=== PATIENT | female | born 1980 | race Caucasian/White ===

== ENCOUNTER 2019-07-11 17:46 | Emergency (ER) | payer BC, SELFPAY ==
--- NOTE | ~2019-07-11 | XR_ITS ---
EXAMINATION: XR shoulder LT min 2V INDICATION: Left shoulder dislocation post reduction TECHNIQUE: Two views of the left shoulder are obtained. COMPARISON: 1804 hours FINDINGS: The previously described left humeral head dislocation has been reduced. Alignment is anato shima. No fracture is identified. IMPRESSION: 1. Reduced shoulder dislocation. Reviewed, dictated and finalized at location A.
--- NOTE | ~2019-07-11 | XR_ITS ---
EXAMINATION: XR shoulder LT min 2V INDICATION: Left shoulder pain and dislocation after fall TECHNIQUE: Two views of the left shoulder are obtained. COMPARISON: None available FINDINGS: There is anterior and inferior dislocation of the left humeral head with respect to the gle noid. No fracture is identified. The visualized osseous structures are otherwise unremarkable. IMPRESSION: 1. Anterior/inferior dislocation of the humeral head with respect to the glenoid. Reviewed, dictated and finalized at location A. IMPRESSION: 1. Anterior/inferior dislocation of the humeral head with respect to the glenoi d.
[2019-07-11 17:48] VITALS: BP 105/50; PULSE 89; RESP 20; TEMP 36.2; O2SAT 98
--- NOTE | 2019-07-11 17:52 | ED.GENADULT ---
HPI - General Adult General Chief complaint: Extremity Injury, Upper <Sepideh Manzo MD - Last Filed: 07/11/19 18:55> Stated complaint: left shoulder dislocation <Sepideh Manzo MD - Last Filed: 07/11/19 18:55> Time Seen by Provider: 07/11/19 17:51 <Sepideh Manzo MD - Last Filed: 07/11/19 18:55> History of Present Illness HPI narrative: Patient is a 38 y/o female complaining of left shoulder pain. She states that she was running and fell. She landed on left palm and she believed she popped her shoulder out. She was also has some mild left knee pain, but she is able to ambulate. She denies hitting her head or having any LOC. She rates her pain as 8/10 and it's worse with movement. She has some scratches on left knee and both hands. She is not sure when her last tetanus shot was. <Sepideh Manzo MD - Last Filed: 07/11/19 18:55> Related Data Home medications: Home Medications Medication Instructions Recorded Confirmed No Home Medications 07/11/19 07/11/19 <Sepideh Manzo MD - Last Filed: 07/11/19 18:55> Allergies/adverse reactions: Allergies Allergy/AdvReac Type Severity Reaction Status Date / Time No Known Allergies Allergy Mild Verified 07/11/19 17:55 <Sepideh Manzo MD - Last Filed: 07/11/19 18:55> Review of Systems Constitutional: Constitutional: Denies chills, Denies fever(s), Denies headache(s) and Denies weakness <Sepideh Manzo MD - Last Filed: 07/11/19 18:55> Eyes: Eyes: Denies blurry vision <Sepideh Manzo MD - Last Filed: 07/11/19 18:55> ENT: Denies headache(s) and Denies neck pain <Sepideh Manzo MD - Last Filed: 07/11/19 18:55> Cardiovascular: Cardiovascular: Denies chest pain and Denies dyspnea <Sepideh Manzo MD - Last Filed: 07/11/19 18:55> Respiratory: Respiratory: Denies cough and Denies dyspnea <Sepideh Manzo MD - Last Filed: 07/11/19 18:55> Gastrointestinal: Gastrointestinal: Denies abdominal pain, Denies diarrhea, Denies nausea and Denies vomiting <Sepideh Manzo MD - Last Filed: 07/11/19 18:55> Genitourinary: Genitourinary: Denies hematuria and Denies dysuria <Sepideh Manzo MD - Last Filed: 07/11/19 18:55> Musculoskeletal: Musculoskeletal: Denies back pain, Reports arthralgias (left shoulder pain) and Denies neck pain <Sepideh Manzo MD - Last Filed: 07/11/19 18:55> Neurologic: Denies headache(s) and Denies weakness <Sepideh Manzo MD - Last Filed: 07/11/19 18:55> [facility] Social History Social History: Social History Gender identity (if verbalized by the patient): Female <Sepideh Manzo MD - Last Filed: 07/11/19 18:55> Exam Const: General: no acute distress and well developed <Sepideh Manzo MD - Last Filed: 07/11/19 18:55> Orientation/consciousness: oriented to person, oriented to place, oriented to time and patient oriented x3 <Sepideh Manzo MD - Last Filed: 07/11/19 18:55> HENMT: Head: normocephalic <Sepideh Manzo MD - Last Filed: 07/11/19 18:55> Ears: external ears normal <Sepideh Manzo MD - Last Filed: 07/11/19 18:55> General nose exam: Normal external nose present <Sepideh Manzo MD - Last Filed: 07/11/19 18:55> Eyes: General: appearance normal, both eyes and all related structures <Sepideh Manzo MD - Last Filed: 07/11/19 18:55> Conjunctivae: conjunctivae normal <Sepideh Manzo MD - Last Filed: 07/11/19 18:55> Neck: Neck: normal visual inspection and full ROM <Sepideh Manzo MD - Last Filed: 07/11/19 18:55> Chest: Chest palpation & inspection: normal inspection of the chest and no tenderness <Sepideh Manzo MD - Last Filed: 07/11/19 18:55> Resp: Effort & Inspection: normal respiratory effort <Sepideh Manzo MD - Last Filed: 07/11/19 18:55> Auscultation: clear to auscultation bilaterally <Sepideh Manzo MD - Last Filed: 07/11/19 18:55> Cardio: Rate: regular rate <Sepideh Manzo MD - Last Filed: 07/11/19 18:55> Rhythm: regular rhythm <Sepideh Manzo MD - Last Filed: 07/11/19 18:55> GI: GI P
[2019-07-11] MEDS: MORPHINE SULFATE 4 MG/ML INJ (17:56)
[2019-07-11 18:43] VITALS: BP 113/80; PULSE 80; RESP 18; O2SAT 98
[2019-07-11] MEDS: TETANUS,DIPHTHERIA,AC PERTUSSIS ADULT (0.5 ML) BOOSTRIX (18:52)
== END 2019-07-11 19:06 | disposition home or self-care (01) ==
PROVIDERS: Emergency Provider Emergency Medicine; PCP Internal Medicine
DX: S43.015A Anterior dislocation of left humerus, initial encounter (principal); S43.035A Inferior dislocation of left humerus, initial encounter; S80.212A Abrasion, left knee, initial encounter; S60.512A Abrasion of left hand, initial encounter; S60.511A Abrasion of right hand, initial encounter; W01.0XXA Fall on same level from slipping, tripping and stumbling without subsequent striking against object, initial encounter; Y93.02 Activity, running; Z23 Encounter for immunization
CPT/HCPCS: 23650; 73030; 90471; 90715; 96374; 99285; J2270

== ENCOUNTER 2020-04-29 18:41 | Inpatient (IN) | payer BC, SELFPAY ==
[2020-04-29] VITALS (10 sets, daily range): BP systolic 91–116; BP diastolic 39–77; PULSE 62–109; RESP 12–24; TEMP 36.2–38.6; O2SAT 95–100; BMI 25.9
--- NOTE | ~2020-04-29 | CT_ITS ---
EXAMINATION: CT abdomen pelvis wo con DATE: 04/29/2020 19:29 INDICATION: Left flank pain TECHNIQUE: Computed tomography (CT) of the abdomen and pelvis was performed without intravenous contr ast. The dose-length product was 186.14 mGy-cm. Automated exposure control and iterative reconstructi on technique were employed. COMPARISON: CT dated 03/22/2014 FINDINGS: Lung bases are unremarkable. Heart size normal. No significant pleural or pericardial effus ion. There is a 9 mm left UPJ stone with hydronephrosis and perinephric edema. There are multiple non obstructing bilateral renal stones. The liver, spleen, pancreas, adrenal glands are unremarkable. Gallbladder is present. Nonobstructive bowel gas pattern. No significant vascular abnormality. No lymphadenopathy. No acute osseous abnormal ity. No free air or free fluid. No significant soft tissue abnormality. IMPRESSION: 1. Left UPJ stone measuring 9 mm with associated hydronephrosis and perinephric edema. 2: Nonobstructing bilateral nephrolithiasis. Reviewed, dictated and finalized at location A. SUTURE WINDER
--- NOTE | ~2020-04-29 | XR_ITS ---
EXAMINATION: XR retrograde pyelo w/stent LT DATE: 04/29/2020 22:02 INDICATION: Left ureteral stone. TECHNIQUE: 330 intraoperative fluoroscopic views of the abdomen and pelvis were obtained. I was not p resent. Fluoroscopy exposure time was 74 seconds. COMPARISON: CT abdomen and pelvis 04/29/2020 FINDINGS: There is a 9 mm stone in proximal left ureter. Images demonstrate advancement of a guidewir e with migration of the stone into the renal pelvis. The left-sided retrograde pyelogram demonstrates mild left hydronephrosis. The final images demonstrate a left internal ureteral stent in expected po sition. IMPRESSION: 1. 9 mm stone in the left renal pelvis. 2. Left internal ureteral stent in expected position. Reviewed, dictated and finalized at location A. TERPERSON
--- NOTE | ~2020-04-29 | XR_ITS ---
XR abdomen/kub 1V 05/01/2020 09:59 Indication: Surgical planning. Renal stone. Procedure: KUB Comparison: 04/29/2020 Findings: Left internal ureteral stent. There are left renal stones, largest measuring 8 mm. There is an IUD in the pelvis. There are pelvic phleboliths. Bowel pattern nonobstructive. Impression: 1: Left nephrolithiasis. Reviewed, dictated and finalized at location B. CH TECHNICIAN Impression: 1: Left nephrolithiasis.
--- NOTE | ~2020-04-29 | XR_ITS ---
XR abdomen/kub 1V 04/29/2020 20:57 Indication: Renal stones Procedure: KUB Comparison: 03/30/2014 Findings: Bowel gas pattern is nonobstructive. There are bilateral renal stones. There is a 9 mm left UPJ stone. Bowel gas pattern nonobstructive with moderate colonic fecal loading. There is an IUD in the pelvis. There are pelvic phleboliths. Impression: 1: Left UPJ stone measuring 9 mm. 2: Bilateral nephrolithiasis. Reviewed, dictated and finalized at location A. SPRAYER Impression: 1: Left UPJ stone measuring 9 mm. 2: Bilateral nephrolithiasis.
[2020-04-29 19:06] LABS: Basophils Percent Auto 0.2 % (0.2-1.2); Eosinophils Percent Auto 0.2 % (0-4.4); Hematocrit 39.4 % (37.0-47.0); Immature Granulocyte Absolute 0.03 K/mm3 (0.00-0.031); Immature Granulocyte Percent A 0.3 % (0-0.5); Lymphocytes Absolute Auto 1.04 K/mm3 (0.9-3.2); Lymphocytes Percent Auto 11.5 % (18.3-44.2); Mean Corpuscular Hemoglobin 31.9 pg (26-34); Mean Corpuscular Volume 96.8 fl (80-100); Mean Platelet Volume 9.5 fl (7.4-10.4); Monocytes Absolute Auto 0.2 K/mm3 (0.1-0.6); Monocytes Percent Auto 1.9 % (2.6-8.5); Neutrophils Absolute Auto 7.8 K/mm3 (1.3-6.7); Neutrophils Percent Auto 85.9 % (45.5-73.1); Platelet Count Result 190 k/mm3 (150-375); Red Blood Count 4.07 M/mm3 (4.2-5.4); Red Cell Distribution Width 12.6 % (11.5-14.5); White Blood Count 9.1 K/mm3 (4.5-10.0)
[2020-04-29] MEDS: ONDANSETRON INJ 4 MG/2 ML VIAL IV PUSH (19:09)
[2020-04-29] MEDS: SODIUM CHLORIDE 0.9% IV 1,000 ML 999 ML IV CONT (19:09)
[2020-04-29] MEDS: KETOROLAC 30 MG/ML VIAL (*BKC) IV PUSH (19:09)
[2020-04-29 19:11] LABS: Add Urine Microscopic? YES; Appearance Urine Cloudy (Clear); Bacteria Urine 4+ /hpf; Bilirubin Urine Negative (Negative); Blood Urine 2+ (Negative); Color Urine Yellow (Yellow); Glucose Urine UA Negative (Negative); Ketones Urine Negative (Negative); Leukocyte Esterase Ur 2+ LEU/UL (Negative); Mucus Urine Rare /lpf; Nitrate Urine Negative (Negative); Protein Urine 1+ mg/dL (Negative); RBC Urine 21-50 /hpf (0-2); Specific Grav Ur 1.018 (1.001-1.035); Squamous Epithelial Cell Urine Occasional /hpf (Few); Urobilinogen Urine Negative mg/dL (<2.0); WBC Urine 51-75 /hpf
[2020-04-29 19:19] LABS: Anion Gap 6 mmol/L (8-16); Blood Urea Nitrogen 23 mg/dL (7-17); Calcium 9.2 mg/dL (8.4-10.2); Carbon Dioxide 29 mmol/L (22-30); Chloride 104 mmol/L (98-107); Estimated CRCL calculation 61 ml/min; Estimated Glomerular Filt Rate 55; Glucose 96 mg/dL (65-105); Potassium 3.7 mmol/L (3.4-5.0); Sodium 139 mmol/L (137-145)
--- NOTE | 2020-04-29 19:22 | ED.GENADULT ---
HPI - General Adult General Chief complaint: Abdominal Pain Stated complaint: left flank pain Time Seen by Provider: 04/29/20 18:59 History of Present Illness HPI narrative: Patient is a 39-year-old female who presents to the ER with left flank pain moving into her lower abdomen. Symptoms began a couple days ago but became markedly more increased today. Pain is more in the lower abdomen than it is in the flank at this time. Associated with nausea and vomiting. No fevers or chills or sweats. She has tried some ibuprofen without relief of discomfort. Denies urinary frequency or urgency or dysuria. She has had no hematuria. No previous history of kidney infection or kidney stone. She does have some chills. Related Data Home Medications Medication Instructions Recorded Confirmed No Home Medications 04/29/20 04/29/20 Allergies Allergy/AdvReac Type Severity Reaction Status Date / Time No Known Allergies Allergy Mild Verified 04/29/20 18:49 Review of Systems Review of Systems: All systems reviewed & are unremarkable except as noted in HPI and below Constitutional: Constitutional: Reports chills and Denies fever(s) Gastrointestinal: Gastrointestinal: Reports abdominal pain, Reports nausea and Reports vomiting Genitourinary: Genitourinary: Denies abnormal vaginal bleeding, Denies hematuria, Denies nocturia, Denies dysuria and Reports flank pain PMFSH Past Medical History Medical History (Updated 04/29/20 @ 20:41 by Kaleb Lucero MD) Healthy female adult Surgical History Surgical History (Updated 04/29/20 @ 19:24 by Kaleb Lucero MD) No history of previous surgery Social History Social History Social History: angeli Aiken Smoking status: Former smoker Tobacco type: cigarettes Second hand tobacco smoke exposure: Yes Alcohol intake: current Drinks per week: 2 Substance use: unknown Gender identity (if verbalized by the patient): Female Exam Narrative: Exam Narrative: GENERAL: Well-appearing, well-nourished, and in no acute distress. HEAD: Normocephalic, atraumatic. CHEST: Clear to auscultation. No respiratory distress. HEART: Tachycardic regular. Normal peripheral pulses. ABDOMEN: Soft, nontender, nondistended. Left CVA tenderness. EXTREMITIES: Normal range of motion. No edema. SKIN: Warm, dry, no rash. NEURO: Alert and oriented x3. PSYCH: Normal mood and affect. Course Course Emergency Course: Patient informed of results. Discussed case with urology. Patient will be taken to the operating room tonight for stent placement. She is received IV ceftriaxone. She has been n.p.o. since 5 PM. She has received IV Toradol/acetaminophen/morphine for pain and fever. Vital Signs Vital signs: Vital Signs Temperature 99.3 F 04/29/20 18:44 Pulse Rate 109 H 04/29/20 18:44 Respiratory Rate 24 H 04/29/20 18:44 Blood Pressure 109/77 04/29/20 18:44 Pulse Oximetry 99 04/29/20 18:44 Temperature 101.4 F H 04/29/20 20:00 Pulse Rate 94 04/29/20 20:00 Respiratory Rate 20 04/29/20 20:00 Blood Pressure 116/69 04/29/20 20:00 Pulse Oximetry 100 04/29/20 20:00 Medical Decision Making Vital Signs Vital Signs: Vital Signs Temperature 99.3 F 04/29/20 18:44 Pulse Rate 109 H 04/29/20 18:44 Respiratory Rate 24 H 04/29/20 18:44 Blood Pressure 109/77 04/29/20 18:44 Pulse Oximetry 99 04/29/20 18:44 Temperature 101.4 F H 04/29/20 20:00 Pulse Rate 94 04/29/20 20:00 Respiratory Rate 20 04/29/20 20:00 Blood Pressure 116/69 04/29/20 20:00 Pulse Oximetry 100 04/29/20 20:00 Lab Data Result diagrams: 04/29/20 19:00 04/29/20 19:00 Labs: Lab Results 04/29/20 04/29/20 04/29/20 Range/Units 18:58 19:00 19:00 WBC 9.1 (4.5-10.0) K/mm3 RBC 4.07 L (4.2-5.4) M/mm3 Hgb 13.0 (12.0-15.0) g/dL Hct 39.4 (37.0-47.0) % MCV
[2020-04-29] MEDS: MORPHINE SULFATE (*CRX) 4 MG/ML INJ IV PUSH (20:18)
--- NOTE | 2020-04-29 20:46 | WPDANESEPP ---
Anes - Eval Pre Procedure Procedure: Cysto, stent placement Date/Time: 04/29/20 20:46 Surgeon: eliud Preop Diagnosis: Left UPJ stone Pre Op Diagnosis: left flank pain Patient Data Age: 39 Gender: F Height: 5 ft 8 in Weight: 68.5 kg Last Vital Signs Temp 101.4 F H 04/29/20 20:00 Pulse 94 04/29/20 20:00 Resp 20 04/29/20 20:00 BP 116/69 04/29/20 20:00 Pulse Ox 100 04/29/20 20:00 Allergies Allergy/AdvReac Type Severity Reaction Status Date / Time No Known Allergies Allergy Mild Verified 04/29/20 18:49 Home Medications Medication Instructions Recorded Confirmed Type No Home Medications 04/29/20 04/29/20 History Laboratory Tests 04/29/20 04/29/20 04/29/20 18:58 19:00 19:00 WBC 9.1 K/mm3 K/mm3 (4.5-10.0) RBC 4.07 M/mm3 L M/mm3 (4.2-5.4) Hgb 13.0 g/dL g/dL (12.0-15.0) Hct 39.4 % % (37.0-47.0) MCV 96.8 fl fl (80-100) MCH 31.9 pg pg (26-34) MCHC 33.0 g/dl g/dl (32-36) RDW 12.6 % % (11.5-14.5) Plt Count 190 k/mm3 k/mm3 (150-375) MPV 9.5 fl fl (7.4-10.4) Immature Gran % (Auto) 0.3 % % (0-0.5) Neut % (Auto) 85.9 % H % (45.5-73.1) Lymph % (Auto) 11.5 % L % (18.3-44.2) [place] % (Auto) 1.9 % L % (2.6-8.5) Eos % (Auto) 0.2 % % (0-4.4) Baso % (Auto) 0.2 % % (0.2-1.2) Lymph # (Auto) 1.04 K/mm3 K/mm3 (0.9-3.2) [place] # (Auto) 0.2 K/mm3 K/mm3 (0.1-0.6) Eos # (Auto) 0.0 K/mm3 K/mm3 (0-0.3) Baso # (Auto) 0.0 K/mm3 K/mm3 (0.0-0.1) Abs Immat Gran (auto) 0.03 K/mm3 K/mm3 (0.00-0.031) Absolute Neuts (auto) 7.8 K/mm3 H K/mm3 (1.3-6.7) Absolute Nucleated RBC 0.0 K/mm3 K/mm3 (0.0-0.012) Nucleated RBC % 0.0 % % (0.0-0.2) Sodium 139 mmol/L mmol/L (137-145) Potassium 3.7 mmol/L mmol/L (3.4-5.0) Chloride 104 mmol/L mmol/L (98-107) Carbon Dioxide 29 mmol/L mmol/L (22-30) Anion Gap 6 mmol/L L mmol/L (8-16) BUN 23 mg/dL H mg/dL (7-17) Creatinine 1.10 mg/dL H mg/dL (0.7-1.0) Estim Creat Clear Calc 61 ml/min ml/min Estimated GFR 55 L (59 - ) Glucose 96 mg/dL mg/dL (65-105) Calcium 9.2 mg/dL mg/dL (8.4-10.2) Urine Color Yellow (Yellow) Urine Appearance Cloudy H (Clear) Urine pH 7.0 (5.0-9.0) Ur Specific [place] 1.018 (1.001-1.035) Urine Protein 1+ mg/dL H mg/dL (Negative) Urine Glucose (UA) Negative mg/dL mg/dL (Negative) Urine Ketones Negative mg/dL mg/dL (Negative) Ur Blood (Man) 2+ H (Negative) Urine Nitrate Negative (Negative) Urine Bilirubin Negative (Negative) Urine Urobilinogen Negative mg/dL mg/dL (<2.0) Leukocyte Esterase Rfl 2+ KAYA/UL H KAYA/UL (Negative) Urine RBC 21-50 /hpf H /hpf (0-2) Urine WBC 51-75 /hpf H /hpf Ur Squamous Epith Cells Occasional /hpf /hpf (Few) Urine Bacteria 4+ /hpf H /hpf Hyaline Casts 1-2 /lpf /lpf (None) Urine Mucus Rare /lpf /lpf Patient hx anesthesia problems: none Family hx anesthesia problems: none [facility] Past Medical History Medical History Healthy female adult History of smoking Pyelonephritis Ureterolithiasis Surgical History Surgical History No history of previous surgery Social History Social History Social History: angeli Aiken Smoking status: Former smoker Tobacco type: cigarettes Second hand tobacco smoke exposure: Yes Alcohol intake: current Drinks per week: 2
--- NOTE | 2020-04-29 21:18 | WPDURCON ---
Assessment and Plan Assessment and plan (1) Pyelonephritis: Code(s): N12 - Tubulo-interstitial nephritis, not specified as acute or chronic Status: Acute Assessment and Plan: 39-year-old female with 9mm proximal stone and hydronephrosis. Appears to have sepsis due to urinary tract infection. -patient be taken to the operating today for cystoscopy and left renal stent insertion. Risks benefits alternatives discussed with the patient patient agrees to proceed. -she will be admitted for IV antibiotics. -plan defer definitive stone management (2) Ureterolithiasis: Code(s): N20.1 - Calculus of ureter Status: Acute (3) Left ureteral stone: Onset Date: ~04/29/20 Code(s): N20.1 - Calculus of ureter Status: Acute Urology Consult Note HPI Date Seen: 04/29/20 Primary Care Provider: Gonzalo Garrison, Consult Narrative Narrative: Olamide Alvarez is a 39 year old female who presented to the ER with chills. She was found have a 9mm proximal ureteral stone. The patient is febrile in the emergency department at 38.6 and tachycardic. Patient has no history of stones in the past. She currently states she has fever, chills. Denies shortness of breath or chest pain Review of Systems Constitutional: Constitutional: Reports as per [facility] Past Medical History Medical History Healthy female adult History of smoking Pyelonephritis Ureterolithiasis Surgical History Surgical History No history of previous surgery Social History Social History Social History: angeli Aiken Smoking status: Former smoker Tobacco type: cigarettes Second hand tobacco smoke exposure: Yes Alcohol intake: current Drinks per week: 2 Substance use: unknown Gender identity (if verbalized by the patient): Female Meds Home Medications and Allergies Home Medications Medication Instructions Recorded Confirmed Type No Home Medications 04/29/20 04/29/20 History Allergies Allergy/AdvReac Type Severity Reaction Status Date / Time No Known Allergies Allergy Mild Verified 04/29/20 18:49 Vital Signs Vital Signs - 24 hr 04/29/20 18:44 04/29/20 20:00 Temperature 37.4 C 38.6 C H Pulse Rate 109 H 94 Respiratory Rate 24 H 20 Blood Pressure 109/77 116/69 Pulse Oximetry 99 100 Exam Const: General: cooperative and healthy appearing Eyes: General: appearance normal, both eyes and all related structures Chest: Chest palpation & inspection: normal inspection of the chest Resp: Effort & Inspection: normal respiratory effort Back/Spine/Pelvis: Back: CVA tenderness (left) Results Labs CBC & Chem 7: 04/29/20 19:00 04/29/20 19:00 Labs: Short CBC 04/29/20 Range/Units 19:00 WBC 9.1 (4.5-10.0) K/mm3 Hgb 13.0 (12.0-15.0) g/dL Hct 39.4 (37.0-47.0) % Plt Count 190 (150-375) k/mm3 BMP 04/29/20 19:00 Sodium 139 Potassium 3.7 Chloride 104 Carbon Dioxide 29 BUN 23 H Creatinine 1.10 H Glucose 96 Calcium 9.2 Urine 04/29/20 Range/Units 18:58 Urine Color Yellow (Yellow) Urine Appearance Cloudy H (Clear) Urine pH 7.0 (5.0-9.0) Ur Specific [place] 1.018 (1.001-1.035) Urine Protein 1+ H (Negative) mg/dL Urine Glucose (UA) Negative (Negative) mg/dL
--- NOTE | 2020-04-29 21:23 | WPDHPUPDATE1 ---
History and Physical Update Update Date/Time: 04/29/20 21:23 History and Physical has been reviewed, including an updated exam of the patient. There are NO changes in the patient's condition. Risks, benefits, and alternatives have been discussed and questions answered. Patient agrees to proceed with procedure.
--- NOTE | 2020-04-29 21:46 | P.OP_ITS ---
Procedure Note - Detailed Date of procedure: 04/29/20 Pre-op diagnosis: left flank pain Left ureteral stone Sepsis Post-op diagnosis: same Procedure performed: Cystoscopy, left retrograde pyelogram, left ureteral stent insertion Description of procedure: Informed consent was obtained. Patient taken the operating room. She received preoperative IV antibiotics in the emergency department. The patient was induced in anesthesia. She was placed in dorsal lithotomy position she was prepped draped normal sterile fashion. We inserted a 20 F cystoscope through the urethra and bladder tack the bladder changes consist ent with infection without other mucosal abnormalities. We then cannulated the left ureteral orifice with a 5 F angiographic catheter retrograde pyelogram revealed stone present in the UPJ with moderate hydronephrosis. The wire was advanced up to the level stone there was resistance. It appeared that the stone that was pushed back into the renal pelvis and then the wire did pass easily into the upper pole. Urine from the renal pelvis was sent for culture. We exchanged to a superstiff guidewire. Over the wire a 4.8 F variable length stent with a curl in the renal pelvis and curled bladder was placed. A Pina catheter is inserted patient was taken to PACU in stable condition Anesthesia: SHOBHA Surgeon: Courtney Hernández MD Drains: No Packing: No Pathology: none sent Complications: No immediate complications Condition: stable Disposition: PACU
[2020-04-29] MEDS: LACTATED RINGERS 1,000 ML 30 ML IV CONT (21:49)
--- NOTE | 2020-04-29 21:55 | SUR.OPER ---
4.8fr stent exp 01-18-23/lot [id number] left
[2020-04-29] MEDS: fentaNYL CITRATE INJ (*CRX) 100 MCG/2 ML VIAL 25 MCG IV PUSH ×8 (22:16→22:42)
--- NOTE | 2020-04-29 23:14 | ADMGEN ---
This patient, Olamide Alvarez, was admitted to [facility] Room 219-01. Patient/family oriented to hospital policies and general routines including ID bracelet, bed and alarms, visiting hours, pain management, procedures, bathroom and other care routines, personal items, smoking policy, room service/diet, and visiting hours. Information on how to activate the Rapid Response Team has been discussed. Patient/Family are encouraged to report perceived risks to care and to ask questions if they do not understand what they are told or what they should do.
[2020-04-29] MEDS: SODIUM CHLORIDE 0.9% IV 1,000 ML 125 ML IV CONT (23:23)
[2020-04-30] VITALS (18 sets, daily range): BP systolic 82–108; BP diastolic 46–62; PULSE 52–93; RESP 18–20; TEMP 36.1–37.2; O2SAT 95–100
[2020-04-30] MEDS: SODIUM CHLORIDE 0.9% IV 1,000 ML 999 ML IV CONT (02:53)
--- NOTE | 2020-04-30 02:54 | PM.IMHP ---
H&P: HPI History of Present Illness Date/Time: 04/30/20 02:54 Chief Complaint: Severe flank pain Narrative: Olamide Alvarez is a 39 year old female with a past medical history of borderline hypotension who presented to the ER via private vehicle due to left flank pain. Patient reports that on the she began having left flank pain that radiated to the front and occasionally into her groin. The pain was colicky in nature and was associated with nausea and vomiting. Her emesis was clear without med emesis. She had had a history of gallbladder dysfunction about 5 years ago with imaging demonstrating gallbladder sludge that was treated conservatively. Have for she thought that her symptoms could be due to her pancreas. The pain was initially manageable on the 6th but an hour prior to arrival pain became much more severe and was and 8 out of 10 in intensity located more in the lower abdomen at presentation. She had noticed some chills that started just prior to coming to the ER in by the time she arrived to the ER she was febrile with a temperature of 101.4?. She did try taking some ibuprofen at home without any relief in her symptoms. She denies any urinary frequency, urgency, dysuria or hematuria. In the ER CT was performed which demonstrated a left UPJ stone measuring 9 mm. She does not have a known history of kidney stones. Her father does have a history of kidney stones. She was also mildly hypotensive following her operative procedure. At that time the patient reports that she does have chronic low blood pressures. However with further questioning the patient reports that her blood pressures are usually around 95 systolic. Just prior to my evaluation the patient's blood pressure was 82/46. She had not received sent any pain medications since 9:40 p.m. she reports that her pain has resolved since she had her cystoscopy. The patient's stone was evidently pushed back into the renal pelvis at the time of procedure and stent was placed. Review of Systems Review of Systems: Narrative: 12 systems were reviewed with pertinent positives and negatives per HPI. Except as documented in the HPI, all other systems were reviewed and are negative. [facility] Past Medical History Medical History (Updated 04/30/20 @ 07:47 by Shanda Townsend DO) Bilateral nephrolithiasis Dysfunctional gallbladder with hospitalization in 2014 due to gallbladder dysfunction/sludge that was managed conservatively Hypotension Chronic with baseline systolic blood pressures of 95 Left ureteral stone (~04/29/20) Pyelonephritis Surgical History Surgical History No history of previous surgery Family History Family History Mother Diabetes mellitus Father Kidney stones Diverticulitis Social History Social History (Updated 04/30/20 @ 07:46 by Shanda Townsend DO) Social History: She lives in [place] with her of 13 years. 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 She has a 9-year-old son who is healthy. Primary care physician: Dr. oGnzalo Garrison Code status: Full code Smoking status: Never smoker Second hand tobacco smoke exposure: No Alcohol intake: current Drinks per week: 2 Substance use: never Substance use type: does not use Gender identity (if verbalized by the patient): Female Spiritual care concerns: No Meds Home Medications and Allergies Home Medications Medication Instructions Recorded Confirmed Type No Home Medications 04/29/20 04/29/20 History Allergies Allergy/AdvReac Type Severity Reaction Status Date / Time No Known Allergies Allergy Mild Verified 04/29/20 18:49 Vital Signs Vital Signs - 24 hr 04/29/20 18:44 04/29/20 20:00 04/29/20 21:49 Temperature 99.3 F 101.4 F H 100 F H Pulse Rate 109 H 94 85 Respiratory Rate 24 H 20 18 Blood Pressure 109/77 116/69 94/
[2020-04-30 03:49] LABS: Anion Gap 6 mmol/L (8-16); Blood Urea Nitrogen 19 mg/dL (7-17); Carbon Dioxide 26 mmol/L (22-30); Chloride 106 mmol/L (98-107); Estimated CRCL calculation 71 ml/min; Estimated Glomerular Filt Rate > 60; Glucose 131 mg/dL (65-105); Potassium 4.2 mmol/L (3.4-5.0); Sodium 138 mmol/L (137-145)
[2020-04-30 04:23] LABS: Hematocrit 36.4 % (37.0-47.0); Hemoglobin 11.8 g/dL (12.0-15.0); Mean Corpuscular HGB Conc 32.4 g/dl (32-36); Mean Corpuscular Hemoglobin 32.4 pg (26-34); Mean Platelet Volume 10.4 fl (7.4-10.4); Platelet Count Result 160 k/mm3 (150-375); Red Blood Count 3.64 M/mm3 (4.2-5.4); Red Cell Distribution Width 12.8 % (11.5-14.5); White Blood Count 15.3 K/mm3 (4.5-10.0)
[2020-04-30] MEDS: SODIUM CHLORIDE 0.9% IV 1,000 ML 150 ML IV CONT (07:57)
--- NOTE | 2020-04-30 09:28 | WPDUROPN2 ---
Progress Note: A&P Assessment and Plan (1) Sepsis: Qualifiers: Sepsis type: sepsis due to unspecified organism Sepsis acute organ dysfunction status: with acute organ dysfunction Severe sepsis acute organ dysfunction type: acute renal failure Acute renal failure type: unspecified Severe sepsis shock status: without septic shock Qualified Code(s): A41.9 - Sepsis, unspecified organism; R65.20 - Severe sepsis without septic shock; N17.9 - Acute kidney failure, unspecified Code(s): A41.9 - Sepsis, unspecified organism Status: Acute Assessment and Plan: Continue IV antibiotics, tailor to culture results. Ok to remove morgan catheter and perform a voiding trial. (2) Left ureteral stone: Onset Date: ~04/29/20 Code(s): N20.1 - Calculus of ureter Status: Acute Assessment and Plan: Plan to do an ESWL on the left side in 1-2 weeks after infection is gone. KUB shows left 9mm UPJ stone and bilateral non obstructive stones. (3) Nephrolithiasis: Code(s): N20.0 - Calculus of kidney Status: Acute Assessment and Plan: Will plan to do Left ESWL, followed by a stent removal in office 1-2 weeks s/p ESWL, then we can discuss the Right ESWL at a later time. Subjective Subjective Date/Time Seen: 04/30/20 09:28 POD #1 Cystoscopy, left ureteroscopy with stent and left retrograde pylogram. Patient is doing very well today s/p surgery. She is tolerating her diet and c/o of little to no pain. Urine is clear and draining to gravity. Review of Systems Cardiovascular: Cardiovascular: Denies chest pain Respiratory: Respiratory: Reports no additional respiratory complaints Gastrointestinal: Gastrointestinal: Denies abdominal pain, Denies nausea and Denies vomiting Genitourinary: Genitourinary: Denies hematuria and Reports other (morgan in place) Exam Resp: Effort & Inspection: normal respiratory effort Cardio: Rate: regular rate GI: GI Palp: Yes Soft to palpation and No Tenderness to palpation present (GI) : General: Yes no CVA tenderness Urinary Catheter: Urinary Catheter: patent and draining and urine clear Extrem: General: no edema Objective Data Vital Signs Vital Signs: Vital Signs - 24 hr 04/29/20 18:44 04/29/20 20:00 04/29/20 21:49 Temperature 99.3 F 101.4 F H 100 F H Pulse Rate 109 H 94 85 Respiratory Rate 24 H 20 18 Blood Pressure 109/77 116/69 94/65 L Pulse Oximetry 99 100 98 04/29/20 22:00 04/29/20 22:15 04/29/20 22:30 Temperature Pulse Rate 90 90 84 Respiratory Rate 12 14 17 Blood Pressure 101/71 105/72 95/63 L Pulse Oximetry 100 97 96 04/29/20 22:45 04/29/20 23:15 04/29/20 23:30 Temperature 97.1 F L 97.2 F L Pulse Rate 87 75 65 Respiratory Rate 21 H 18 18 Blood Pressure 103/57 L 100/39 L 91/54 L Pulse Oximetry 95 97 96 04/29/20 23:44 04/30/20 00:02 04/30/20 00:10 Temperature 97.8 F 97.8 F Pulse Rate 62 71 Respiratory Rate 20 18 Blood Pressure 92/58 L 87/54 L 92/62 L Pulse Oximetry 98 97 04/30/20 00:14 04/30/20 00:30 04/30/20 01:00 Temperature 97.5 F L 97 F L Pulse Rate 68 57 L Respiratory Rate 20 18 Blood Pressure 92/62 L 90/58 L 88/55 L Pulse Oximetry 97 97 04/30/20 02:00 04/30/20 02:37 04/30/20 02:52 Temperature 97.3 F L 97 F L Pulse Rate 55 L 56 L Respiratory Rate 18 18 Blood Pressure 82/46 L 90/60 L 90/60 L Pulse Oximetry 95 95 04/30/20 04:07 04/30/20 05:00 04/30/20 07:31 Temperature 97.5 F L 98 F Pulse Rate 52 L 61 69 Respiratory Rate 18 18 18 Blood Pressure 92/56 L 88/48 L 96/58 L Pulse Oximetry 100 99 98 Intake/Output Intake/Output: Intake & Output 04/27/20 04/28/20 04/29/20 04/30/20 23:59 23:59 23:59 23:59 Intake Total 1450 1480 Output Total 550 Balance 1450 930 Meds/Results Medications: Active Medications Generic Name Dose Route Start Last Admin Trade Name Freq PRN Reason Stop Dose Admin Acetaminophen 650 mg 04/30/20 08:49 Acetami
[2020-04-30] MEDS: ACETAMINOPHEN 325 MG TABLET 650 MG PO ×3 (10:55→20:19)
--- NOTE | 2020-04-30 14:18 | PM.IMPN ---
Progress Note: A&P Assessment and Plan (1) Sepsis: Qualifiers: Sepsis type: sepsis due to unspecified organism Sepsis acute organ dysfunction status: with acute organ dysfunction Severe sepsis acute organ dysfunction type: acute renal failure Acute renal failure type: unspecified Severe sepsis shock status: without septic shock Qualified Code(s): A41.9 - Sepsis, unspecified organism; R65.20 - Severe sepsis without septic shock; N17.9 - Acute kidney failure, unspecified Code(s): A41.9 - Sepsis, unspecified organism Status: Acute Assessment and Plan: Met criteria for sepsis upon presentation with tachypnea, tachycardia, and fever. Source of infection felt to be urinary. Her blood pressures had been running low but did improved following IV fluid resuscitation. T-max 101.4?. She has been afebrile today. Urine cultures and blood cultures pending. Continue gentle IV fluid rehydration. Normal saline at 75 ml/hr Monitor vital signs and labs closely Check lactic acid (2) Pyelonephritis: Code(s): N12 - Tubulo-interstitial nephritis, not specified as acute or chronic Status: Acute Assessment and Plan: Urinalysis grossly abnormal upon presentation with associated flank pain and CVA tenderness. She is feeling much better and pain is improved. Continue IV Rocephin, started on to 04/29/20 Urine cultures pending. Await results and tailor antibiotics accordingly Appreciate urology consultation Perform voiding trial. Pina was clamped prior to voiding trial for unclear reasons and I have instructed nursing staff to unclamp and remove Pina. Gentle IV fluids as above. (3) Left ureteral stone: Onset Date: ~04/29/20 Code(s): N20.1 - Calculus of ureter Status: Acute Assessment and Plan: Left UPJ stone measuring 9 mm with associated hydronephrosis and perinephric edema noted on CT a/p. She is s/p placement on 04/29/[address] Hernández. She tolerated the procedure well and her pain has resolved. She will need outpatient urology follow-up for stent removal and ESWL in 1-2 weeks upon resolution of acute infection. (4) Leukocytosis: Code(s): D72.829 - Elevated white blood cell count, unspecified Status: Acute Assessment and Plan: White count was within normal limits upon presentation but today has increased to 15.3. It seems more likely that this is reactive secondary to surgical procedure. Infectious etiology considered but much less likely given normal white count upon presentation. Monitor CBC with diff (5) Hypotension: Code(s): I95.9 - Hypotension, unspecified Status: Inactive Assessment and Plan: Patient reports that her blood pressure is usually in the 90s systolic. She had been having some episodes of hypotension as low as 82/46. She was rehydrated with IV fluids and BP improved now. Last BP 108/61. Continue gentle IV fluids. Monitor BP daily Subjective Date/time seen: 04/30/20 14:18 Interval history: Date of service: 04/30/2019 Olamide Alvarez is a 39-year-old female with a history of dysfunctional gallbladder and hypotension who is seen in follow-up for left ureteral stone and pyelonephritis. She is feeling significantly improved today following her ureteral stent placement on 04/29/2020. This morning she had a brief episode of body aches and felt that she had a fever, however reports that she did not have an elevated temperature reading. Her abdominal and flank pain has resolved entirely. She also was having back pain and CVA tenderness that has resolved. At this time her only complaint is a headache which she believes is related to caffeine withdrawal from not having her morning coffee. She currently has a Pina and is not having any issues. She denies nausea or vomiting. Denies diarrhea. She has been eating well. No shortness of breath or cough. Denies dizziness, lightheadedne
--- NOTE | 2020-04-30 14:45 | PC.NURSE ---
Per Dr. Burgess balloon deflated and morgan removed. Patient ambulated to restroom and voided large amount. IV fjuids infusing without difficulty. call light within reach.
--- NOTE | 2020-04-30 16:45 | PC.NURSE ---
Talked with Laila hospitalist Moses and advised her of patient stating she just doesnt feel well and states she doesnt think Tylenol is helping. Patient Refused Zofran says she is not nauseated. Laila states to increase IV fluids to 100cc/hr. and try to make patient more comfortable. Does not want to increase pain meds at this moment due to low blood pressure. Will continue to monitor.
[2020-04-30] MEDS: SODIUM CHLORIDE 0.9% IV 1,000 ML 100 ML IV CONT (17:57)
[2020-04-30] MEDS: traMADol HCL (*CRX) 25 MG TABLET PO (23:52)
[2020-05-01] VITALS (7 sets, daily range): BP systolic 106–119; BP diastolic 59–69; PULSE 77–91; RESP 16–20; TEMP 36.6–37.6; O2SAT 97–100
[2020-05-01] MEDS: SODIUM CHLORIDE 0.9% IV 1,000 ML 100 ML IV CONT ×2 (02:36→17:28)
[2020-05-01 05:11] LABS: Basophils Percent Auto 0.2 % (0.2-1.2); Eosinophils Percent Auto 0.4 % (0-4.4); Hematocrit 36.1 % (37.0-47.0); Immature Granulocyte Absolute 0.06 K/mm3 (0.00-0.031); Immature Granulocyte Percent A 0.5 % (0-0.5); Lymphocytes Percent Auto 8.8 % (18.3-44.2); Mean Corpuscular HGB Conc 33.2 g/dl (32-36); Mean Corpuscular Hemoglobin 32.3 pg (26-34); Mean Corpuscular Volume 97.3 fl (80-100); Mean Platelet Volume 9.5 fl (7.4-10.4); Monocytes Absolute Auto 0.7 K/mm3 (0.1-0.6); Monocytes Percent Auto 6.3 % (2.6-8.5); Neutrophils Absolute Auto 9.5 K/mm3 (1.3-6.7); Neutrophils Percent Auto 83.8 % (45.5-73.1); Platelet Count Result 145 k/mm3 (150-375); Red Blood Count 3.71 M/mm3 (4.2-5.4); Red Cell Distribution Width 13.1 % (11.5-14.5); White Blood Count 11.3 K/mm3 (4.5-10.0)
[2020-05-01 05:27] LABS: Anion Gap 4 mmol/L (8-16); Blood Urea Nitrogen 11 mg/dL (7-17); Calcium 7.8 mg/dL (8.4-10.2); Carbon Dioxide 24 mmol/L (22-30); Chloride 109 mmol/L (98-107); Estimated CRCL calculation 90 ml/min; Estimated Glomerular Filt Rate > 60; Glucose 96 mg/dL (65-105); Lactic Acid Reflex 0.7 mmol/L (0.7-2.1); Potassium 3.6 mmol/L (3.4-5.0); Sodium 137 mmol/L (137-145)
[2020-05-01] MEDS: traMADol HCL (*CRX) 25 MG TABLET PO ×2 (07:44→20:10)
--- NOTE | 2020-05-01 10:24 | PM.IMPN ---
Progress Note: A&P Assessment and Plan (1) Sepsis: Qualifiers: Sepsis type: sepsis due to unspecified organism Sepsis acute organ dysfunction status: with acute organ dysfunction Severe sepsis acute organ dysfunction type: acute renal failure Acute renal failure type: unspecified Severe sepsis shock status: without septic shock Qualified Code(s): A41.9 - Sepsis, unspecified organism; R65.20 - Severe sepsis without septic shock; N17.9 - Acute kidney failure, unspecified Code(s): A41.9 - Sepsis, unspecified organism Status: Acute Assessment and Plan: Met criteria for sepsis upon presentation with tachypnea, tachycardia, and fever. Source of infection felt to be urinary. Her blood pressures had been running low but did improved following IV fluid resuscitation. T-max 101.4? on 04/29/20. She has been afebrile since 04/29. Lactic acid was normal. Preliminary urine culture demonstrates 50,000-100,000 CFU/mL klebs aerogenes (enterobacter). Blood cultures and sensitivities for urine culture pending, await final results including urine culture sensitivities Continue gentle IV fluid rehydration with normal saline at 75 ml/hr Monitor vital signs and labs closely (2) Pyelonephritis: Code(s): N12 - Tubulo-interstitial nephritis, not specified as acute or chronic Status: Acute Assessment and Plan: Urinalysis grossly abnormal upon presentation with associated flank pain and CVA tenderness. She continues to improve clinically. Pina was removed and she is urinating well following removal. Continue IV Rocephin, started on to 04/29/20 Preliminary urine culture (clean catch) demonstrates 50,000-100,000 CFU/mL klebs aerogenes (enterobacter), Await sensitivities and tailor antibiotics accordingly. Urine culture obtained from cystoscopy is pending. Appreciate urology consultation Gentle IV fluids as above (3) Left ureteral stone: Onset Date: ~04/29/20 Code(s): N20.1 - Calculus of ureter Status: Acute Assessment and Plan: Left UPJ stone measuring 9 mm with associated hydronephrosis and perinephric edema noted on CT a/p. She is s/p placement on 04/29/[address] Hernández. She will need outpatient urology follow-up for stent removal and ESWL in 1-2 weeks upon resolution of acute infection Continue analgesics as needed (4) Leukocytosis: Code(s): D72.829 - Elevated white blood cell count, unspecified Status: Acute Assessment and Plan: White count was within normal limits upon presentation but increased to 15,300 2/8 which was likely reactive secondary to surgical procedure. Infectious etiology considered but much less likely given normal white count upon presentation. WBC improved to 11,300 today. Monitor CBC with diff daily (5) Hypotension: Code(s): I95.9 - Hypotension, unspecified Status: Inactive Assessment and Plan: Patient reports that her blood pressure is usually in the 90s systolic. She had been having some episodes of hypotension as low as 82/46. She was rehydrated with IV fluids and BP improved now. Last BP 108/60.. Continue gentle IV fluids Monitor BP daily Subjective Date/time seen: 05/01/20 10:24 Mrs. Alvarez is a 39 y.o. female with PMH significant for dysfunctional gallbladder and hypotension who is seen in follow-up for left ureteral stone and pyelonephritis. She is feeling okay today. She continues to endorse some diffuse muscle aches and describes subjective fever/chills but temperature readings were normal. She reports no abdominal pain or flank pain. Pina was removed and she is voiding fine following removal. She reports increased urinary frequency but attributes this more to the IV fluids and notes no associated urgency, hesitancy, or dysuria. She does note some discomfort at the left kidney with urination but has no other complaints. She notes a mild frontal, tension-type headache and t
--- NOTE | 2020-05-01 10:32 | WPDUROPN2 ---
Progress Note: A&P Assessment and Plan (1) Nephrolithiasis: Code(s): N20.0 - Calculus of kidney Status: Acute Assessment and Plan: KUB repeat s/p surgery shows that the left ureteral stone was pushed back into the kidney. She will have a Left ESWL scheduled for this Thursday with Dr. Foster at [facility]. No further evaluation at this time. (2) Sepsis: Qualifiers: Sepsis type: sepsis due to unspecified organism Sepsis acute organ dysfunction status: with acute organ dysfunction Severe sepsis acute organ dysfunction type: acute renal failure Acute renal failure type: unspecified Severe sepsis shock status: without septic shock Qualified Code(s): A41.9 - Sepsis, unspecified organism; R65.20 - Severe sepsis without septic shock; N17.9 - Acute kidney failure, unspecified Code(s): A41.9 - Sepsis, unspecified organism Status: Acute Assessment and Plan: Awaiting culture results, continue IV antibiotics, send home with appropriate oral antibiotics. Subjective Subjective Date/Time Seen: 05/01/20 10:32 POD #2 Cystoscopy, left ureteroscopy with stent and left retrograde pylogram. Patient is doing very well s/p surgery. She is tolerating her diet and c/o of little to no pain. Urine is clear and she is urinating well without morgan catheter in place. Urine is not bloody, she c/o mild pain with urination. Review of Systems Cardiovascular: Cardiovascular: Denies chest pain Respiratory: Respiratory: Reports no additional respiratory complaints Gastrointestinal: Gastrointestinal: Denies abdominal pain, Denies nausea and Denies vomiting Genitourinary: Genitourinary: Reports dysuria, Denies pelvic pain, Denies flank pain, Denies urinary hesitancy and Denies urinary urgency Exam Resp: Effort & Inspection: normal respiratory effort Cardio: Rate: regular rate GI: GI Palp: Yes Soft to palpation and No Tenderness to palpation present (GI) : General: Yes no CVA tenderness Extrem: General: no edema Objective Data Vital Signs Vital Signs: Vital Signs - 24 hr 04/30/20 10:55 04/30/20 11:56 04/30/20 12:33 Temperature 98 F 98 F 98.8 F Pulse Rate 88 Respiratory Rate 20 Blood Pressure 108/61 Pulse Oximetry 98 04/30/20 15:35 04/30/20 16:00 04/30/20 20:00 Temperature 97.7 F 97.7 F 99 F Pulse Rate 76 93 Respiratory Rate 18 18 Blood Pressure 97/58 L 101/59 L Pulse Oximetry 97 97 05/01/20 00:00 05/01/20 04:00 05/01/20 08:00 Temperature 99 F 99 F 97.9 F Pulse Rate 77 91 82 Respiratory Rate 20 18 20 Blood Pressure 108/59 L 106/62 108/60 Pulse Oximetry 99 98 97 Intake/Output Intake/Output: Intake & Output 04/28/20 04/29/20 04/30/20 05/01/20 23:59 23:59 23:59 23:59 Intake Total 1450 4460 1480 Output Total 1650 650 Balance 1450 2810 830 Meds/Results Medications: Active Medications Generic Name Dose Route Start Last Admin Trade Name Freq PRN Reason Stop Dose Admin Acetaminophen 650 mg 04/30/20 08:49 04/30/20 20:19 Acetaminophen 325 Mg Tablet PO 650 mg Q4H PRN Administration Pain 1-3 Docusate Sodium 100 mg 05/01/20 21:00 Docusate Sodium 100 Mg Capsule PO Q12HR JOSHUA Ceftriaxone Sodium/Dextrose 1 gm in 50 mls @ 100 mls/hr 04/30/20 20:00 04/30/20 20:40 Rocephin 1 Gm/D5w 50 Ml IVPB Infused Q24H JOSHUA Infusion Sodium Chloride 1,000 mls @ 100 mls/hr 04/30/20 05:40 05/01/20 02:36 Normal Saline Iv IV CONT 100 mls/hr .Q10H JOSHUA Administration Ondansetron HCl 4 mg 04/30/20 08:49 Ondansetron Inj 4 Mg/2 Ml Vial IV PUSH Q6H PRN Nausea And Vomiting Polyethylene Glycol 17 gm 05/01/20 10:28 Polyethylene Glycol 3350 17 Gm Powd.Pack PO DAILY PRN Constipation Tramadol HCl 25 mg 04/30/20 23:44 05/01/20 07:44 Tramadol Hcl (*Crx) 25 Mg Tablet PO 25 mg Q6H PRN Administration Pain Rated 4-10 Radiology Results: ITS Impressions Abdomen/Pelvis CT
[2020-05-01] MEDS: DOCUSATE SODIUM 100 MG CAPSULE PO ×2 (12:16→20:09)
[2020-05-01 22:50] LABS: SARS-CoV-2 RNA PCR Negative
[2020-05-02] VITALS: BP 112/61; PULSE 90; RESP 16; TEMP 37.1; O2SAT 98
[2020-05-02 04:00] VITALS: BP 105/60; PULSE 78; RESP 16; TEMP 37.2; O2SAT 98
[2020-05-02 05:11] LABS: Basophils Percent Auto 0.2 % (0.2-1.2); Eosinophils Absolute Auto 0.1 K/mm3 (0-0.3); Eosinophils Percent Auto 0.9 % (0-4.4); Hematocrit 33.6 % (37.0-47.0); Hemoglobin 11.1 g/dL (12.0-15.0); Immature Granulocyte Absolute 0.03 K/mm3 (0.00-0.031); Immature Granulocyte Percent A 0.4 % (0-0.5); Lymphocytes Absolute Auto 1.24 K/mm3 (0.9-3.2); Lymphocytes Percent Auto 15.3 % (18.3-44.2); Mean Corpuscular Hemoglobin 31.6 pg (26-34); Mean Corpuscular Volume 95.7 fl (80-100); Mean Platelet Volume 9.8 fl (7.4-10.4); Monocytes Absolute Auto 0.8 K/mm3 (0.1-0.6); Monocytes Percent Auto 9.7 % (2.6-8.5); Neutrophils Percent Auto 73.5 % (45.5-73.1); Platelet Count Result 142 k/mm3 (150-375); Red Blood Count 3.51 M/mm3 (4.2-5.4); Red Cell Distribution Width 12.6 % (11.5-14.5); White Blood Count 8.1 K/mm3 (4.5-10.0)
[2020-05-02 05:31] LABS: Anion Gap 2 mmol/L (8-16); Blood Urea Nitrogen 7 mg/dL (7-17); Calcium 7.8 mg/dL (8.4-10.2); Carbon Dioxide 26 mmol/L (22-30); Chloride 108 mmol/L (98-107); Estimated CRCL calculation 90 ml/min; Estimated Glomerular Filt Rate > 60; Glucose 92 mg/dL (65-105); Magnesium 1.7 mg/dL (1.6-2.3); Potassium 3.4 mmol/L (3.4-5.0); Sodium 136 mmol/L (137-145)
[2020-05-02 08:00] VITALS: BP 111/66; PULSE 86; RESP 20; TEMP 37.1; O2SAT 99
[2020-05-02] MEDS: DOCUSATE SODIUM 100 MG CAPSULE PO (08:06)
--- NOTE | 2020-05-02 09:35 | PM.DS ---
DS: Admitting Diagnosis Admitting Diagnosis Admitting Diagnosis: Left sided nephrolithiasis and pyelonephritis DS: Discharge Diagnosis Discharge Diagnosis (1) Sepsis: Qualifiers: Acute renal failure type: unspecified Sepsis acute organ dysfunction status: with acute organ dysfunction Sepsis type: sepsis due to unspecified organism Severe sepsis acute organ dysfunction type: acute renal failure Severe sepsis shock status: without septic shock Qualified Code(s): A41.9 - Sepsis, unspecified organism; R65.20 - Severe sepsis without septic shock; N17.9 - Acute kidney failure, unspecified Code(s): A41.9 - Sepsis, unspecified organism Status: Resolved Assessment and Plan: Resolved. Met criteria for sepsis upon presentation with tachypnea, tachycardia, and fever. Source of infection felt to be urinary. Blood pressures were running low initially but improved following IV fluid resuscitation. T-max 101.4? on 04/29/20 but she was afebrile since 04/29/20 and overall improved. Lactic acid was normal. Blood cultures demonstrated NGTD with final cultures pending at discharge. (2) Pyelonephritis: Code(s): N12 - Tubulo-interstitial nephritis, not specified as acute or chronic Status: Acute Assessment and Plan: Urinalysis grossly abnormal upon presentation with associated flank pain and CVA tenderness. She was treated with IV rocephin and she improved significantly. Morgan was removed and she voided well following morgan removal. Urine culture demonstrated >100,000 CFU/mL klebs aerogenes (enterobacter). The organism was sensitive to ceftriaxone on the urine culture obtained from clean catch but resistant on the one obtained from cysto so I discussed with urology and we stopped ceftriaxone and started IV levaquin. She will discharge on PO levaquin to complete 7 days of treatment. (3) Left ureteral stone: Onset Date: ~04/29/20 Code(s): N20.1 - Calculus of ureter Status: Acute Assessment and Plan: Left UPJ stone measuring 9 mm with associated hydronephrosis and perinephric edema noted on CT a/p. She is s/p placement on 04/29/[address] Hernández. She will need outpatient urology follow-up for stent removal and ESWL in 1-2 weeks upon resolution of acute infection. (4) Leukocytosis: Code(s): D72.829 - Elevated white blood cell count, unspecified Status: Acute Assessment and Plan: White count was within normal limits upon presentation but increased to 15,300 2/8, likely reactive and secondary to surgical procedure, and normalized. (5) Hypotension: Code(s): I95.9 - Hypotension, unspecified Status: Resolved Assessment and Plan: Patient reports that her blood pressure is usually in the 90s systolic. She had some episodes of hypotension initially with normal lactic acid of 0.7 which resolved with IV fluids. DS: Summary Hospital Course Reason for hospitalization: Left sided nephrolithiasis and pyelonephritis Hospital Course: Discharge Summary (Date of service 05/02/20): Mrs. Alvarez is a 39 y.o. female with PMH significant for dysfunctional gallbladder and hypotension who presented to the hospital for the evaluation of left flank pain with associated nausea and vomiting. She was febrile on arrival to the emergency department with temperature of 101.4F and SIRS criteria was met with associated tachypnea and tachycardia with urinary source suspected. Blood cultures were obtained. Workup in the emergency department included CT abd/pelvis which demonstrated left UPJ stone measuring 9 mm with associated hydronephrosis and perinephric edema and nonobstructing bilateral nephrolithiasis. Urine culture was grossly abnormal. She was treated with IV fluids and IV ceftriaxone and admitted to the hospitalist service with urology consultation. She underwent cystoscopy with left retrograde pyelogram and left ureteral stent insertion on 04/29/20 by
[2020-05-02 11:22] LABS: INR 0.9; Prothrombin Time 12.9 Seconds (11.1-14.7)
[2020-05-02 11:23] LABS: Partial Thromboplastin Time 31.5 SECONDS (22.3-36.8)
[2020-05-02 13:21] LABS: Beta HCG Quantitative < 2.39 mIU/ML
== END 2020-05-02 13:11 | disposition home or self-care (01) | DRG 854 ==
LOC: ANHED 20:41 → ANHTRC 23:13
PROVIDERS: General Practice; Physician Assistant; Urology; Admitting Provider Internal Medicine; Emergency Provider Emergency Medicine; PCP Internal Medicine; Visit Provider Nurse Practitioner Adult Health
PROC: 0T778DZ Dilation of Left Ureter with Intraluminal Device, Via Natural or Artificial Opening Endoscopic (ICD-10-PCS; CPT 52352; principal; 2020-04-29 21:00)
DX: A41.9 Sepsis, unspecified organism (principal); N13.6 Pyonephrosis; N17.9 Acute kidney failure, unspecified; Z20.822 Contact with and (suspected) exposure to COVID-19; R65.20 Severe sepsis without septic shock; I95.9 Hypotension, unspecified; D72.829 Elevated white blood cell count, unspecified; Z23 Encounter for immunization; Z87.891 Personal history of nicotine dependence
CPT/HCPCS: 36415; 74018; 74176; 74420; 80048; 81001; 81025; 83605; 83735; 84702; 85025; 85027; 85610; 85730; 87040; 87077; 87086; 87088; 87186; 90471; 90653; 96361; 96365; 96367; 96375; 99285; A9270; C1769; C1887; C2617; C9803; G0008; J0131; J0696; J1100; J1885; J1956; J2270; J2405; J2704; J3010; J7030; J7120; Q9966; U0003; U0005

== ENCOUNTER 2020-05-04 01:11 | Day surgery (SDC) | payer BC, SELFPAY ==
[2020-05-02 10:55] VITALS: BMI 23.4
--- NOTE | 2020-05-02 14:10 | P.PNUR_ITS ---
Progress Note: A&P Assessment and Plan (1) Nephrolithiasis: Code(s): N20.0 - Calculus of kidney Status: Acute (2) Sepsis: Qualifiers: Sepsis type: sepsis due to unspecified organism Sepsis acute organ dysfunction status: with acute organ dysfunction Severe sepsis acute organ dysfunction type: acute renal failure Acute renal failure type: unspecified Severe sepsis shock status: without septic shock Qualified Code(s): A41.9 - Sepsis, unspecified organism; R65.20 - Severe sepsis without septic shock; N17.9 - Acute kidney failure, unspecified Code(s): A41.9 - Sepsis, unspecified organism Status: Acute Assessment and Plan: Patient had a pre-cysto culture which grew Klebsiella Aerogenes and was sensitive to Ceftriaxone which she has been being treated with, her intra- operative culture also grew Klebsiella Aerogenes but was resistant to Ceftriaxone. I spoke with Suzanne the Hospitalist and we have switched her to Levaquin, with one IV dose today and she will continue oral Levaquin at home. (3) Left ureteral stone: Onset Date: ~04/29/20 Code(s): N20.1 - Calculus of ureter Status: Acute Assessment and Plan: Will plan to come back on Thursday for a Left ESWL with Dr. Foster, she is already scheduled for surgery at 2pm on 05/04/2020. She is aware and has no further questions. Ok to discharge home with Levaquin. Subjective Subjective Date/Time Seen: 05/02/20 14:10 POD #3 Cystoscopy, left ureteroscopy with stent and left retrograde pylogram. Patient is doing very well s/p surgery. She is tolerating her diet and c/o of little to no pain. Urine is clear and she is urinating well without morgan catheter in place. Urine is not bloody, she c/o mild pain with urination. Review of Systems Cardiovascular: Cardiovascular: Reports no additional cardiovascular complaints Respiratory: Respiratory: Reports no additional respiratory complaints Gastrointestinal: Gastrointestinal: Denies abdominal pain, Denies nausea and Denies vomiting Genitourinary: Genitourinary: Denies hematuria, Denies nocturia, Denies pelvic pain and Denies flank pain Exam Resp: Effort & Inspection: normal respiratory effort Cardio: Rate: regular rate GI: GI Palp: Yes Soft to palpation and No Tenderness to palpation present (GI) : General: Yes no CVA tenderness Extrem: General: no edema
--- NOTE | 2020-05-03 07:01 | PM.HPGS ---
History of Present Illness History of Present Illness Consent: Risks, benefits, and alternatives have been discussed and questions answered. Patient agrees to proceed with procedure. Chief complaint: left renal stone Narrative: Olamide Alvarez is a 39 year old female who recently presented to the ER at [facility] with left flank pain and low-grade fever. She was found to have an obstructing 9-10 mm, calcified left proximal ureteral stone. She has undergone ureteral stent placement and thorough management of her documented urinary tract infection and now presents for left ESWL. She is aware of the risk of this procedure including, but not limited to, adverse cardiopulmonary events, recurring urinary tract infection possible sepsis, failure to thoroughly treat the stone with need for additional procedures. Review of Systems Cardiovascular: Cardiovascular: Denies chest pain, Denies lightheadedness, Denies palpitations and Denies dyspnea Respiratory: Respiratory: Denies dyspnea Gastrointestinal: Gastrointestinal: Denies diarrhea, Denies nausea and Denies vomiting Genitourinary: Genitourinary: Denies hematuria and Denies dysuria Endocrine: Endocrine: Denies palpitations PMFSH Past Medical History Medical History Bilateral nephrolithiasis Dysfunctional gallbladder with hospitalization in 2015 due to gallbladder dysfunction/sludge that was managed conservatively Hypotension Chronic with baseline systolic blood pressures of 95 Left ureteral stone (~04/29/20) Pyelonephritis Surgical History Surgical History No history of previous surgery Family History Family History Mother Diabetes mellitus Father Kidney stones Diverticulitis Social History Social History Social History: She lives in [place] with her of 13 years. 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 She has a 9-year-old son who is healthy. Primary care physician: Dr. Gonzalo Garrison Code status: Full code Smoking status: Never smoker Second hand tobacco smoke exposure: No Alcohol intake: current Drinks per week: 1 Substance use: never Substance use type: does not use Living arrangements: with family Gender identity (if verbalized by the patient): Female Spiritual care concerns: No Meds Home Medications and Allergies Home Medications Medication Instructions Recorded Confirmed Type hyoscyamine sulfate [Anaspaz] 0.125 mg PO Q4H PRN 5 Days #30 05/01/20 05/02/20 Rx tablet acetaminophen [Tylenol] 325 mg PO ONCE PRN 05/02/20 05/02/20 History levofloxacin 750 mg PO DAILY 6 Days #6 tablet 05/02/20 05/02/20 Rx Allergies Allergy/AdvReac Type Severity Reaction Status Date / Time No Known Allergies Allergy Mild Verified 05/02/20 10:30 Exam Const: General: no acute distress Resp: Effort & Inspection: normal respiratory effort GI: Inspection: non-distended GI Palp: No abdominal tenderness and No Guarding due to palpation present (GI) Auscultation: normal bowel sounds Assessment and Plan Assessment and plan (1) Nephrolithiasis: Code(s): N20.0 - Calculus of kidney Status: Acute (2) Left ureteral stone: Onset Date: ~04/29/20 Code(s): N20.1 - Calculus of ureter Status: Acute Assessment and Plan: Left ESWL
--- NOTE | 2020-05-03 15:54 | WPDANESEPPF ---
Anes - Initial Pre Proc Eval Procedure: Operation Date: 05/04/20 14:00 Proposed Procedures p Left Renal Extracorporeal Shock Wave Lithotripsy - Adam Foster MD Date/Time: 05/03/20 15:54 Surgeon: Adam Foster MD Pre Op Diagnosis: left renal stone Patient Data Age: 39 Gender: F Height: 1.73 m Weight: 70 kg Allergies Allergy/AdvReac Type Severity Reaction Status Date / Time No Known Allergies Allergy Mild Verified 05/02/20 10:30 Home Medications Medication Instructions Recorded Confirmed Type hyoscyamine sulfate [Anaspaz] 0.125 mg PO Q4H PRN 5 Days #30 05/01/20 05/04/20 Rx tablet acetaminophen [Tylenol] 325 mg PO ONCE PRN 05/02/20 05/04/20 History levofloxacin 750 mg PO DAILY 6 Days #6 tablet 05/02/20 05/02/20 Rx Patient hx anesthesia problems: none Family hx anesthesia problems: none PMFSH Past Medical History Medical History Bilateral nephrolithiasis Dysfunctional gallbladder with hospitalization in 2014 due to gallbladder dysfunction/sludge that was managed conservatively Hypotension Chronic with baseline systolic blood pressures of 95 Left ureteral stone (~04/29/20) Pyelonephritis Surgical History Surgical History No history of previous surgery Family History Family History Mother Diabetes mellitus Father Kidney stones Diverticulitis Social History Social History Social History: She lives in [place] with her of 13 years. 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 She has a 9-year-old son who is healthy. Primary care physician: Dr. Gonzalo Garrison Code status: Full code Smoking status: Never smoker Second hand tobacco smoke exposure: No Alcohol intake: current Drinks per week: 1 Substance use: never Substance use type: does not use Living arrangements: with family Gender identity (if verbalized by the patient): Female Spiritual care concerns: No Anes - Eval Final PreProcedure Day of Procedure 05/03/20 15:54 Patient weight: normal Heart: regular rate and rhythm Lungs: clear to auscultation and normal air movement Airway: Mallampati scale class II Neurological: alert and oriented Last oral intake: >/= 8 hours ASA classification: II Emergent: no Anesthetic plan: proceed Anesthesia type and monitoring: general LMA Informed Consent: The patient's anesthetic plan and its attendant risks and benefits were discussed with the patient/family/POA. Questions were solicited and answers provided to the satisfaction of the patient/family/POA.
[2020-05-04] VITALS (7 sets, daily range): BP systolic 101–124; BP diastolic 69–83; PULSE 58–78; RESP 12–20; TEMP 36.1–36.8; O2SAT 98–100
--- NOTE | ~2020-05-04 | XR_ITS ---
EXAMINATION: XR abdomen/k[facility] 1V INDICATION: Urolithiasis TECHNIQUE: Supine views of the abdomen were obtained on 2 radiographs. COMPARISON: 05/01/2020 FINDINGS: A left internal ureteral stent is in expected position. There is a 9 mm stone of the left k idney lower pole. There are multiple punctate stones of the right kidney which measure up to 2 mm. Kn own punctate left nephrolithiasis is not well demonstrated due to overlying bowel contents. Phlebolit hs are present in the pelvis. The bowel gas pattern is normal. An IUD is noted. IMPRESSION: 1. 9 mm stone of the left kidney lower pole. Left internal ureteral stent in expected position. Reviewed, dictated and finalized at [facility]. SSIONS COORDINATOR IMPRESSION: 1. 9 mm stone of the left kidney lower pole. Left internal ureteral stent in ex pected position.
--- NOTE | 2020-05-04 06:39 | WPDHPUPDATE1 ---
History and Physical Update Update Date/Time: 05/04/20 06:39 History and Physical has been reviewed, including an updated exam of the patient. There are NO changes in the patient's condition. Risks, benefits, and alternatives have been discussed and questions answered. Patient agrees to proceed with procedure.
[2020-05-04] MEDS: LACTATED RINGERS 1,000 ML 30 ML IV CONT ×2 (13:00→15:15)
[2020-05-04] MEDS: ceFAZolin 2 GM/D5W 50 ML 2 GM/50 ML BAG IVPB (14:25)
--- NOTE | 2020-05-04 15:01 | P.OP_ITS ---
Procedure Note - Detailed Date of procedure: 05/04/20 Pre-op diagnosis: Left renal stone Post-op diagnosis: same Procedure performed: Left ESWL Description of procedure: 1) Activity: * No driving or important decisions [id number]. * No lifting/straining >15lbs. [id number]. 2) Strain urine until one stone fragment retrieved. Bring that fragment to your follow-up visit. 3) Diet: resume normal pre-admission diet. 4) Follow-up: 2-3 weeks with [facility] / call for appointment ([phone]) Anesthesia: GLMA Surgeon: Adam Foster MD Estimated blood loss (mL): 0 Drains: Yes (Indwelling left ureteral stent) Packing: No Pathology: none sent Complications: No immediate complications Condition: stable Disposition: PACU
== END 2020-05-04 16:32 | disposition home or self-care (01) ==
PROVIDERS: PCP Internal Medicine; Visit Provider Urology
PROC: (CPT 50590; principal; 2020-05-04 14:00)
DX: N20.1 Calculus of ureter (principal)
CPT/HCPCS: 50590; 74018; J0690; J1100; J2250; J2405; J2704; J3010; J7120

== ENCOUNTER → 2020-05-16 16:18 | Outpatient (CLI) | payer BC, SELFPAY ==
--- NOTE | ~2020-05-16 | XR_ITS ---
XR abdomen/[facility] 1V DATE: 05/16/2020 16:30 INDICATION: Kidney calculus TECHNIQUE: AP projection, 2 views COMPARISON: May 04, 2020 [facility] 04/29/[address] abdomen pelvis FINDINGS: Left internal urinary stent is unchanged in position, the proximal pigtail overlying the le ft ureteropelvic area, the distal pigtail overlying the left pelvis. An IUD is noted. Approximately 7 x 8 mm calcification overlying the lower pole left kidney on the May 04, 2020 [facility] B is no longer detected; no definite residual fragments are evident overlying the kidney or left uret er. Some subtle faint calcifications are still present overlying the left kidney, present on the previous 05/04/2020 [facility] and noncontrast 04/29/2020 CT abdomen pelvis examination.. IMPRESSION: Left internal urinary stent remains; apparent complete interval resolution of 7 x 8 mm ca lcified calculus since May 04, 2020 Left nephrocalcinosis Reviewed, dictated and finalized at [facility]. Reviewed, dictated and finalized at [facility]. GE MAKER IMPRESSION: Left internal urinary stent remains; apparent complete interval res olution of 7 x 8 mm calcified calculus since May 04, 2020 Left nephrocalcinosis
== END ==
PROVIDERS: Visit Provider Urology
DX: N20.0 Calculus of kidney (principal)
CPT/HCPCS: 74018

== ENCOUNTER 2021-02-05 11:22 | Outpatient (CLI) | payer BC, SELFPAY ==
--- NOTE | ~2021-02-05 | XR_ITS ---
XR abdomen/[facility] 1V DATE: 02/05/2021 11:47 INDICATION: Kidney calculus. Lithotripsy in April 2020 TECHNIQUE: AP projection, 2 views There are multiple bilateral small renal calcified calculi. April 29, 2020 CT abdomen pelvis noncontrast examination FINDINGS: No definite ureteral calcified calculus is noted. IUD overlies the mid pelvis. Bilateral calcified pelvic phleboliths. The psoas shadows are intact. No visceromegaly is evident. There is a moderately prominent of fecal material in the colon but no evidence of bowel obstruction IMPRESSION: Bilateral nephrolithiasis; no apparent ureteral calcified calculus IUD Reviewed, dictated and finalized at [facility]. . Reviewed, dictated and finalized at location [facility]. OLOGY PHYSICIAN ASSISTANT
== END 2021-02-05 11:23 | disposition home or self-care (01) ==
LOC: ANHIMG 11:29
PROVIDERS: PCP Internal Medicine; Visit Provider Urology
DX: N20.0 Calculus of kidney (principal); Z97.5 Presence of (intrauterine) contraceptive device
CPT/HCPCS: 74018

== ENCOUNTER 2023-03-16 22:42 | Emergency (ER) | payer BC, SELFPAY ==
--- NOTE | ~2023-03-16 | CT_ITS ---
EXAMINATION: CT cervical spine wo con DATE: 03/16/2023 23:52 INDICATION: Left arm paresthesias. Neck pain. TECHNIQUE: Computed tomography (CT) of the cervical spine was performed without intravenous contrast. Automated exposure control and iterative reconstruction technique were employed. The dose-length pro duct was 461.88 mGy-cm. COMPARISON: None FINDINGS: There is kyphosis of cervical spine. There is 8 degrees levocurvature of cervical spine. Ve rtebral body heights are normal. There is moderately decreased disc height at C5-C6 and severely decr eased disc height at C6-C7. The following disc levels are specifically discussed: C2-C3: There is mild right and moderate left uncovertebral joint osteoarthritis. There is moderate bi lateral facet joint osteoarthritis. There is mild left neural foraminal stenosis. There is no central canal stenosis. C3-C4: There is mild bilateral uncovertebral joint osteoarthritis. There is mild bilateral facet join t osteoarthritis. There is mild bilateral neural foraminal stenosis. There is mild central canal sten osis. C4-C5: There is mild right uncovertebral joint osteoarthritis. There is mild right facet joint osteoa rthritis. There is no neural foraminal stenosis. There is no central canal stenosis. C5-C6: There is severe right and mild left uncovertebral joint osteoarthritis. There is mild bilatera l facet joint osteoarthritis. There is mild right neural foraminal stenosis. There is mild central ca nal stenosis. C6-C7: There is severe bilateral uncovertebral joint osteoarthritis. There is mild bilateral facet alee int osteoarthritis. There is mild right and moderate left neural foraminal stenosis. There is mild ce ntral canal stenosis. C7-T1: There is no uncovertebral joint osteoarthritis. There is severe bilateral facet joint osteoart hritis. There is mild left neural foraminal stenosis. There is no central canal stenosis. IMPRESSION: 1. Severe cervical spondylosis. Reviewed, dictated and finalized at location [facility]. EWASHER
[2023-03-16 22:43] VITALS: BP 130/87; PULSE 69; RESP 18; TEMP 36.3; O2SAT 99
[2023-03-16] MEDS: HYDROcodone/acetaminophen (*CRX) 5-325 MG TABLET 1 TAB PO (23:56)
[2023-03-16] MEDS: ACETAMINOPHEN 325 MG TABLET 650 MG PO (23:56)
--- NOTE | 2023-03-17 00:19 | ED.EXTPRO ---
HPI - Extremity Problem General Chief complaint: Extremity Problem,Nontraumatic Stated complaint: L arm pain Time Seen by Provider: 03/16/23 23:13 Source: patient Mode of arrival: ambulatory Limitations: no limitations History of Present Illness HPI Narrative: 42-year-old female who complains of left arm pain and intermittent paresthesias since Thursday. Neck was stiff but now it is better. She is concerned she has a pension. She trialed the prox and ibuprofen and also had a few tablets of gabapentin that she had previously been prescribed that she tried. These provided minimal relief. She denies any trauma she does regularly workout. Her pain had been positional. Paresthesias are at the elbow and into digits 1 2 and 3 of her left hand. This has happened before but she has never had any advanced imaging. Related Data Home Medications Medication Instructions Recorded Confirmed acetaminophen 325 mg capsule 325 mg PO ONCE PRN Pain 05/02/20 05/04/20 (Tylenol) Allergies Allergy/AdvReac Type Severity Reaction Status Date / Time No Known Allergies Allergy Mild Verified 05/02/20 10:30 [facility] Past Medical History Medical History Bilateral nephrolithiasis Dysfunctional gallbladder with hospitalization in 2015 due to gallbladder dysfunction/sludge that was managed conservatively Hypotension Chronic with baseline systolic blood pressures of 95 Left ureteral stone (~04/29/20) Pyelonephritis Surgical History Surgical History No history of previous surgery Family History Family History Mother Diabetes mellitus Father Kidney stones Diverticulitis Social History Social History Social History: She lives in [place] with her of 13 years. 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 She has a 9-year-old son who is healthy. Primary care physician: Dr. Gonzalo Garrison Code status: Full code Smoking status: Never smoker Second hand tobacco smoke exposure: No Alcohol intake: current Drinks per week: 1 Substance use: never Substance use type: does not use Living arrangements: with family Gender identity (if verbalized by the patient): Female Spiritual care concerns: No Exam Narrative: GENERAL: Well-appearing, well-nourished, and in no acute distress. HEAD: Normocephalic, atraumatic. EYES: Non injected, non icteric ENT: Nares clear, no rhinorrhea or epistaxis. NECK: Supple. No TTP of C spine which are midline and w/o bony stepoffs. CHEST: Speaking in full sentences. No respiratory distress. HEART: Regular rate and rhythm. 2+ radial pulse L arm. ABDOMEN: Soft, nondistended. EXTREMITIES: Normal range of motion. No edema. 5/5 strength with bilateral wrist flexion-extension, elbow flexion-extension, shoulder abduction. SKIN: Warm, dry, no rash (including no dermatomal rash) NEURO: No focal deficits. Sensation intact to gross touch throughout bilateral upper extremities. Alert and oriented x3. PSYCH: Normal mood and affect. Course Vital Signs Vital signs: Vital Signs Temperature 97.4 F L 03/16/23 22:43 Pulse Rate 69 03/16/23 22:43 Respiratory Rate 18 03/16/23 22:43 Blood Pressure 130/87 03/16/23 22:43 Pulse Oximetry 99 03/16/23 22:43 Oxygen Delivery Room Air 03/16/23 22:43 Temperature 97.4 F L 03/16/23 22:43 Pulse Rate 70 03/17/23 01:09 Respiratory Rate 19 03/17/23 01:09 Blood Pressure 128/79 03/17/23 01:09 Pulse Oximetry 98 03/17/23 01:09 Oxygen Delivery Room Air 03/16/23 22:43 MDM - Extremity (Nontraumatic) MDM Narrative Medical decision making narrative: 42 yo female with L arm pain and intermittent paresthesias. No trauma. VS stable. Patient is experiencing subjective paresthesias t
[2023-03-17 01:09] VITALS: BP 128/79; PULSE 70; RESP 19; O2SAT 98
== END 2023-03-17 01:11 | disposition home or self-care (01) ==
PROVIDERS: Emergency Provider Student in an Organized Health Care Education/Training Program; PCP Internal Medicine
DX: M47.812 Spondylosis without myelopathy or radiculopathy, cervical region (principal); M50.30 Other cervical disc degeneration, unspecified cervical region
CPT/HCPCS: 72125; 99284; A9270

== ENCOUNTER → 2023-04-06 10:42 | Outpatient (CLI) | payer BC, SELFPAY ==
--- NOTE | ~2023-04-06 | MR_ITS ---
MRI of the cervical spine Clinical History: Neuropathy Technique: Axial T2-weighted and gradient images, and sagittal T1-weighted, T2-weighted, and STIR sally ges were acquired. Findings: There is no fracture or subluxation of the cervical spine. Vertebral bodies maintain normal height and alignment. No suspicious progressive abnormality seen. At C2-C3, there is no disc bulge or herniation. No spinal canal stenosis, cord compression, or neural foraminal narrowing. At C3-C4, there is tiny disc bulge. No spinal canal stenosis or cord compression. There is mild right neural foraminal narrowing with mild right facet arthropathy. Left neural foramen preserved. At C4-C5, there is no significant disc bulge or herniation. No spinal canal stenosis, cord compressio n, or neural foraminal narrowing. At C5-C6, there is mild disc osteophyte complex, with no doni canal stenosis or cord compression. Th ere is mild right neural foraminal narrowing. Left neural foramen preserved. At C6-C7, there is left paracentral to left foraminal disc osteophyte complex with severe left neural foraminal narrowing. There is minimal flattening of the left side of the ventral spinal cord. There is probable moderate right neural foraminal narrowing as well. No abnormal signal seen in spinal cord. Paravertebral soft tissues are unremarkable. Impression: Moderate to severe degenerative spondylosis at C6-C7, as detailed above. Mild degenerative change in the remainder of the cervical spine, as above. Reviewed, dictated and finalized at [facility]. STRAR ASSISTANT Impression: Moderate to severe degenerative spondylosis at C6-C7, as detailed above. Mild degenerative change in the remainder of the cervical spine, as above.
== END ==
PROVIDERS: PCP Internal Medicine; Visit Provider Internal Medicine
DX: M43.02 Spondylolysis, cervical region (principal)
CPT/HCPCS: 72141